=== PATIENT | female | born 1955 | race Caucasian/White ===

== ENCOUNTER 2018-11-22 16:11 | Emergency (ER) | payer OTHER ==
[2018-11-22 16:19] VITALS: TEMP 98.2
[2018-11-22] MEDS ORDERED: HYDROcodone/APAP 5-325MG 1 EACH TAB PO STA (16:38)
--- NOTE | 2018-11-22 16:42 | ED ---
General Adult HPI - General Chief complaint: Extremity Injury, Upper Stated complaint: shoulder pain/nausea Time Seen by Provider: 11/22/18 16:20 Source: patient Mode of arrival: ambulatory Limitations: no limitations - History of Present Illness Initial comments: 63-year-old female presenting with one month of left shoulder pain. Patient states there was no inciting event. She states the pain is in the anterior aspect of the shoulder, is worse with range of motion, has been improved with Motrin and Tylenol with codeine, and does not have any accompanying symptoms. She states over the weekend it had improved but then today she woke and has subjective fever and nausea. She denied any chest pain, shortness of breath, vomiting, diarrhea, urinary symptoms. Denies any diaphoresis. Patient presented to an outside facility who recommended she present here for further evaluation. She denies any joint injections swelling of the shoulder, new ra shes, erythema. Patient had a stress test and EKG last week which were both unremarkable. Patient also admits to a mild frontal headache is not accompanied by any photophobia, focal weakness, or vision change. - Related Data Previous Rx's Medication Instructions Recorded HYDROcodone/APAP 5-325MG [[employer] 1 tab PO Q6HR PRN 3 Days #12 tab 11/22/18 5-325] Allergies Allergy/AdvReac Type Severity Reaction Status Date / Time povidone-iodine Allergy Rash/Hives Verified 11/22/18 16:44 [From Betadine] soap [From Betadine] Allergy Rash/Hives Verified 11/22/18 16:44 Review of Systems ROS Statement: Those systems with pertinent positive or pertinent negative responses have been documented in the HPI. Review of Systems Constitutional: Positive fever, chills Eyes: Denies change in vision, Denies pain Ears, nose, mouth, throat: Denies headaches, Denies sore throat Cardiovascular: Denies chest pain. Denies palpitations Respiratory: Denies shortness of breath, Denies cough Gastrointestinal: Denies abdominal pain. Positive nausea. Negative vomiting, diarrhea. Genitourinary: Denies hematuria, Denies infections Musculoskeletal: Positive pain, Denies swelling Integumentary: Denies rash Neurological: Denies headache, focal weakness, focal numbness Psychiatric: Denies anxiety, Denies depression Hematologic/Lymphatic: Denies easy bleeding or bruising ROS Other: All systems not noted in ROS Statement are negative. 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 Atraumatic Eyes: PERRL. EOMI. No scleral icterus. No injected conjunctiva Neck: Full ROM. No nuchal rigidity. No midline cervical spine tenderness. Chest/Lungs: Clear to auscultation bilaterally. No wheezing, rhonchi, or rales Cardiac: Regular rate, rhythm. No murmurs or rubs. 2+ radial pulses bilaterally Abdomen/GI: Soft, nontender, nondistended. No rebound, guarding, or rigidity. Musculoskeletal: . No swelling or erythema to the left shoulder. Tenderness to palpation to the anterior aspect of the joint. Limited range of motion in all planes secondary to pain. No obvious deformity. Full range of motion of left elbow, wrist, hand. Skin: Warm, dry, intact Neurologic: A/Ox3, no weakness, no sensory deficit, no abnormal gait, no coordination deficit. C5 through T1 sensation intact bilaterally Limitations: no limitations Course Vital Signs 11/22/18 11/22/18 11/22/18 16:13 17:30 18:00 Temperature 98.2 F Pulse Rate 64 55 L Respiratory 16 18 18 Rate Blood Pressure 155/79 126/72 115/77 O2 Sat by Pulse 98 95 98 Oximetry 11/22/18 11/22/18 18:30 19:00 Temperature Pulse Rate 54 L 55 L Respiratory 18 18 Rate Blood Pressure 115/72 121/79 O2 Sat by Pulse 95 96 Oximetry EKG Findings - EKG Comments: EKG Findings:: EKG shows NSR at a rate of [address] segment elevation, depression. No prolonged QT/QTc or OR interval. No dysrythmia noted. Medical Decision Making - Medical Decision Making 63-year-old female here presenting with reported fever, left shoulder pain, nausea. Patient's FRITZ is frontal, she has no neurologic deficit on exam, no neck tenderness or rigidity, and is afebrile here. In the abscence of head injury or neurologic deficit no indication for imaging. Discussed low possibility of meningitis, however this unlikely at this time as the patient is nontoxic and afebrile. The patient agreed on deferring LP. The patient's shoulder pain has been ongoing for one month. She has no rash, fever, erythema, swelling to the joint, or risk factors to have septic arthritis. Unlikely to be the cause of her pain. She had no chest pain, shortness of breath, or other anginal equivalents besides nausea to warrant a cardiac workup. Her EKG showed NSR without ST elevation or depression. She had a negative stress test earlier this week. Patient has no leukocytosis, her ESR is 9 however her CRP is 44. She is afebrile here. Her x-ray showed worsening calcific tendonitis, which is consistent with the patient's presentation as well as her elevated CRP. Her pain improved on the emergency department. The patient has an orthopedic surgeon that she is followed with in the past for knee replacements. Patient's headache completely resolved and she remained neurologically intact on the department. Patient's pain is likely secondary to her tendinitis. She was given a short course of narcotic pain medication, as well as Colace, to take Motrin does not alleviated her symptoms. Instructed not to drive or operate machinery while using the narcotic medication. No further emergent workup indicated. The patient was given return to ED instructions. They were instructed to follow up with their primary care provider. Stable for discharge at this time. - Lab Data Result diagrams: 11/22/18 16:48 11/22/18 16:48 Lab Results 11/22/18 11/22/18 Range/Units 16:48 16:48 WBC 8.5 (3.8-10.6) k/uL RBC 4.83 (3.80-5.40) m/uL Hgb 13.9 (11.4-16.0) gm/dL Hct 42.3 (34.0-46.0) % MCV 87.7 (80.0-100.0) fL MCH 28.7 (25.0-35.0) pg MCHC 32.7 (31.0-37.0) g/dL RDW 14.8 (11.5-15.5) % Plt Count 165 (150-450) k/uL Neutrophils % 75 % Lymphocytes % 15 % Monocytes % 7 % Eosinophils % 0 % Basophils % 0 % Neutrophils # 6.4 (1.3-7.7) k/uL Lymphocytes # 1.3 (1.0-4.8) k/uL Monocytes # 0.6 (0-1.0) k/uL Eosinophils # 0.0 (0-0.7) k/uL Basophils # 0.0 (0-0.2) k/uL ESR 9 (0-20) mm/hr Sodium 140 (137-145) mmol/L Potassium 4.0 (3.5-5.1) mmol/L Chloride 110 H (98-107) mmol/L Carbon Dioxide 22 (22-30) mmol/L Anion Gap 8 mmol/L BUN 9 (7-17) mg/dL Creatinine 0.64 (0.52-1.04) mg/dL Est GFR (CKD-EPI)AfAm >90 (>60 ml/min/1.73 sqM) Est GFR (CKD-EPI)NonAf >90 (>60 ml/min/1.73 sqM) Glucose 112 H (74-99) mg/dL Calcium 10.2 (8.4-10.2) mg/dL C-Reactive Protein 44.9 H (<10.0) mg/L Disposition Clinical Impression: Calcific tendinitis of left shoulder Disposition: HOME SELF-CARE Condition: Good Instructions (If sedation given, give patient instructions): Calcific Tendinitis (ED) Additional Instructions: Follow up with your orthopedic surgeon this week Prescriptions: HYDROcodone/APAP 5-325MG [[employer] 5-325] 1 tab PO Q6HR PRN 3 Days #12 tab PRN Reason: Pain Is patient prescribed a controlled substance at d/c from ED?: Yes When asked, does pt state using other controlled substances?: No If prescribed controlled substance>3 days was MAPS reviewed?: Prescribed <3 Days Referrals: Jaron Benson MD [Primary Care Provider] - 1-2 days
--- NOTE | 2018-11-22 17:23 | XR ---
EXAMINATION TYPE: XR chest 2V DATE OF EXAM: 11/22/2018 COMPARISON: NONE HISTORY: Shoulder pain TECHNIQUE: Frontal and lateral views of the chest are obtained. FINDINGS: Heart and mediastinum are normal. Lungs are clear of consolidation. There is small linear density in the left midlung. There is no pleural effusion. Bony thorax is intact. IMPRESSION: Scarring or subsegmental atelectasis in the left midlung. No heart failure.
--- NOTE | 2018-11-22 17:25 | XR ---
EXAMINATION TYPE: XR shoulder complete LT DATE OF EXAM: 11/22/2018 COMPARISON: NONE HISTORY: Shoulder pain TECHNIQUE: 3 views FINDINGS: I see no fracture nor dislocation. There is some amorphous calcification at the greater tub erosity. Glenohumeral joint is intact. IMPRESSION: There is evidence of some calcific tendinitis. No fracture. Exam limited by clothing Darlene fact.
[2018-11-22 18:42] LABS: Anion Gap 8 mmol/L; Blood Urea Nitrogen 9 mg/dL (7-17); C Reactive Protein 44.9 mg/L (<10.0); Calcium 10.2 mg/dL (8.4-10.2); Carbon Dioxide 22 mmol/L (22-30); Chloride 110 mmol/L (98-107); Glucose 112 mg/dL (74-99); Sodium 140 mmol/L (137-145)
[2018-11-22 18:47] LABS: Basophils % (A) 0 %; Eosinophils % (A) 0 %; HCT 42.3 % (34.0-46.0); HGB 13.9 gm/dL (11.4-16.0); Lymphocytes # (A) 1.3 k/uL (1.0-4.8); Lymphocytes % (A) 15 %; MCH 28.7 pg (25.0-35.0); MCHC 32.7 g/dL (31.0-37.0); MCV 87.7 fL (80.0-100.0); Mean Platelet Volume 8.1; Monocytes # (A) 0.6 k/uL (0-1.0); Monocytes % (A) 7 %; Neutrophils # (A) 6.4 k/uL (1.3-7.7); Neutrophils % (A) 75 %; Platelet Count 165 k/uL (150-450); RBC 4.83 m/uL (3.80-5.40); RDW 14.8 % (11.5-15.5); WBC 8.5 k/uL (3.8-10.6)
[2018-11-22 18:49] VITALS: RESP 18
[2018-11-22 19:05] VITALS: BP 121/79; PULSE 55
[2018-11-22 19:33] LABS: Erythrocyte Sedimentation Rate 9 mm/hr (0-20)
== END 2018-11-22 19:10 | disposition home or self-care (01) ==
LOC: EC 16:11
DX: M75.32 Calcific tendinitis of left shoulder (principal); R50.9 Fever, unspecified; R11.0 Nausea; R51 Headache; Z88.3 Allergy status to other anti-infective agents; Z91.048 Other nonmedicinal substance allergy status; Z86.79 Personal history of other diseases of the circulatory system; Z95.828 Presence of other vascular implants and grafts
CPT/HCPCS: 36415; 71046; 80048; 85025; 85652; 86140; 99283

== ENCOUNTER 2019-06-23 08:58 | Day surgery (SDC) | payer OTHER ==
[2019-06-22 08:49] VITALS: BMI 30.7
[~2019-06-23 08:58] MED LIST: LACTATED RINGERS 1,000 ML IV SCH; LIDOCAINE 1% 20 ML VIAL (10MG/ML) FOR IV START INTRADERMA PRN
[2019-06-23 09:46] VITALS: RESP 16; TEMP 97.5
[2019-06-23 10:02] LABS: Glucose,Whole Blood 84 mg/dL (75-99)
[2019-06-23] MEDS ORDERED: LIDOCAINE 1% INJ 10MG/ML (20 ML MDV) ONE (10:18)
[2019-06-23] MEDS ORDERED: GLYCOPYRROLATE 0.2 MG/ML 2 ML VIAL ONE (10:18)
[2019-06-23] MEDS ORDERED: PROPOFOL 10 MG/ML 20 ML VIAL IV ONE (10:18)
--- NOTE | 2019-06-23 10:39 | P.PCN ---
Date of Procedure: 06/23/19 Procedure(s) Performed: BRIEF HISTORY: Patient is a 62-year-old, pleasant, white female, scheduled for an upper endoscopy as a part of evaluation of heartburn/globus sensation her throat area for the last few weeks duration. She was started on Prilosec 20 mg daily with no significant relief in her symptoms.. PROCEDURE PERFORMED: Esophagogastroduodenoscopy with biopsy. PREOPERATIVE DIAGNOSIS: GERD/globus sensation in her throat area. IV sedation per anesthesia. PROCEDURE: After informed consent was obtained, the patient was brought into the endoscopy unit. IV sedation was administered by Anesthesia under continuous monitoring. Initially the Olympus GIF-140 video endoscope was inserted into the mouth. Esophagus intubated without any difficulty. It was gradually advanced into the stomach and duodenum and carefully examined. The bulb and the second part of the duodenum appeared normal. The scope at this time was withdrawn to the stomach, adequately insufflated with air, and upon careful examination, mucosa of the antrum had scattered erosions and biopsies were done from this area. The, body, cardia and the fundus appeared normal. The scope was then withdrawn into the esophagus. The GE junction was located at 39 cm from the incisors. The esophagus appeared normal. There were no erosions or ulcerations seen, multiple biopsies were done in mid and distal esophagus and the patient tolerated the procedure well. IMPRESSION: 1. Mild antral erosive gastritis. 2. Normal-appearing esophagus with no evidence of esophagitis or esophageal stricture. RECOMMENDATIONS: The findings of this examination were discussed with the patient as well as a family. She was advised to follow with the biopsy results. She will continue with omeprazole 20 mg daily and Pepcid at bedtime and follow antireflux measures. She will be seen in office in 3-4 weeks.
[2019-06-23 11:07] VITALS: BP 153/83; PULSE 52
== END 2019-06-23 11:28 | disposition home or self-care (01) ==
LOC: ORWHC2ENDO 08:58
PROVIDERS: ATTEND Internal Medicine Gastroenterology
DX: K29.50 Unspecified chronic gastritis without bleeding (principal); K21.9 Gastro-esophageal reflux disease without esophagitis; I10 Essential (primary) hypertension; E78.5 Hyperlipidemia, unspecified; Z79.02 Long term (current) use of antithrombotics/antiplatelets; Z79.82 Long term (current) use of aspirin; Z79.899 Other long term (current) drug therapy; Z91.048 Other nonmedicinal substance allergy status; Z98.1 Arthrodesis status; Z90.710 Acquired absence of both cervix and uterus
CPT/HCPCS: 88305; 43239; J2001; J2704

== ENCOUNTER → 2020-01-26 | Outpatient (CLI) | payer OTHER ==
[2020-01-26 14:27] LABS: Basophils % (A) 0 %; Eosinophils # (A) 0.1 k/uL (0-0.7); Eosinophils % (A) 1 %; HCT 40.9 % (34.0-46.0); HGB 13.5 gm/dL (11.4-16.0); Lymphocytes # (A) 1.4 k/uL (1.0-4.8); Lymphocytes % (A) 16 %; MCH 29.5 pg (25.0-35.0); MCV 89.6 fL (80.0-100.0); Mean Platelet Volume 8.4; Monocytes # (A) 0.7 k/uL (0-1.0); Monocytes % (A) 8 %; Neutrophils # (A) 6.3 k/uL (1.3-7.7); Neutrophils % (A) 73 %; Platelet Count 232 k/uL (150-450); RBC 4.56 m/uL (3.80-5.40); RDW 13.1 % (11.5-15.5); WBC 8.7 k/uL (3.8-10.6)
[2020-01-26 14:47] LABS: C Reactive Protein 88.6 mg/L (<10.0); Calcium 10.4 mg/dL (8.4-10.2); Potassium 4.2 mmol/L (3.5-5.1)
--- NOTE | 2020-01-26 18:51 | CT ---
EXAMINATION TYPE: CT abdomen pelvis wo con DATE OF EXAM: 01/26/2020 HISTORY: Lower abdominal pain and nausea. CT DLP: 552.9 mGycm. Automated Exposure Control for Dose Reduction was Utilized. TECHNIQUE: CT scan of the abdomen and pelvis is performed with oral but without IV contrast. COMPARISON: NONE FINDINGS: Within the limitations of a non-contrast study, the following observations are made. LUNG BASES: Nwpy-cz-ijazzcop bibasilar linear scarring and/or atelectasis. LIVER/GB: No significant abnormality is appreciated. PANCREAS: No significant abnormality is seen. SPLEEN: No significant abnormality is seen. ADRENALS: No significant abnormality is seen. KIDNEYS: No renal stones or hydronephrosis is seen bilaterally. BOWEL: The oral contrast reaches the level of the proximal sigmoid colon making evaluation slightly s uboptimal of distal colon. No suspicious small or large bowel dilatation. There is moderate wall thic kening mid sigmoid colon with mild to moderate surrounding fat stranding. No well-formed fluid collec tion or abscess. No pneumoperitoneum. GENITAL ORGANS: Uterus is surgically absent or markedly atrophic. LYMPH NODES: No greater than 1cm abdominal or pelvic lymph nodes are appreciated. OSSEOUS STRUCTURES: Mzop-gc-jrcafzvg axial joint space loss in both hips. Some facet arthropathy lowe r lumbar levels. OTHER: Metallic stent grafts in the iliac veins bilaterally, right side is longer extending past the groin into the common femoral vein. IMPRESSION: CT findings consistent with a mild to moderate uncomplicated acute colitis mid sigmoid co aggie in the central pelvis. Differential includes infectious and inflammatory etiologies. Correlate cl inically. Follow-up colonoscopy after treatment is advised if has not been performed in last 3 years.
== END | disposition home or self-care (01) ==
LOC: RADCTMAIN 13:53
PROVIDERS: ATTEND Nurse Practitioner
DX: R10.30 Lower abdominal pain, unspecified (principal)
CPT/HCPCS: 74176; 80048; 85025; 86140

== ENCOUNTER → 2022-11-28 | Outpatient (CLI) | payer MEDICARE, BC ==
--- NOTE | 2022-11-29 13:33 | MR ---
EXAMINATION TYPE: MR cervical spine wo con DATE OF EXAM: 11/28/2022 COMPARISON: None HISTORY: 67-year-old female M54.2, Z98.1, Neck pain that radiates down right arm. TECHNIQUE: Multiplanar, multisequence images of the cervical spine were acquired without contrast. FINDINGS: No craniocervical junction unremarkable, predental space widening, or prevertebral soft tissue swelli ng. There is mild to moderate multilevel degenerative disc disease with intervertebral disc desiccation a nd small disc osteophyte complexes. These contribute to mild spinal canal stenosis at C3-C4 with abutment and slight flattening of the ve ntral cord and greater degree of mild spinal canal stenosis at C4-C5 with greater degree of abutment and flattening of the ventral cord at this level. Hypertrophic facet and uncovertebral joint arthropathy throughout. Alignment is maintained. Previous ACDF at C6-C7. At C2-C3, there is mild right neuroforaminal stenosis. At C3-C4, there is [id number] right neural foraminal stenosis. At C4-C5, there is moderate left and trvd-ig-[id number] right neuroforaminal stenosis. At C5-C6, mild to moderate left neural foraminal stenosis. At the fused C6-C7 level, no neuroforaminal stenosis. At C7-T1, no neuroforaminal stenosis. No suspicious bone marrow replacement with mild heterogeneity of marrow signal. There is some mild artifacts projecting over the cord. No definite T2-weighted cord signal abnormalit y when correlated with the axial series. IMPRESSION: 1. Previous uncomplicated C6-C7 ACDF. 2. Jdye-ay-otfrihvc degenerative disc disease. Small disc osteophyte complexes at C3-C4 and C4-C5 con tribute to mild spinal canal stenoses at both of these levels. This results in abutment and slight fl attening of the ventral cord, more so at C4-C5, but without mayur cord compression. When correlating with axial series, no convincing myelopathic cord signal change. 3. Variable mild to moderate neural foraminal stenoses secondary to facet and uncovertebral joint art hropathy as outlined above.
== END | disposition home or self-care (01) ==
LOC: RADMRIMAIN 11:17
PROVIDERS: ATTEND Orthopaedic Surgery Orthopaedic Surgery of the Spine
DX: M96.1 Postlaminectomy syndrome, not elsewhere classified (principal); M50.30 Other cervical disc degeneration, unspecified cervical region; M48.02 Spinal stenosis, cervical region; M99.71 Connective tissue and disc stenosis of intervertebral foramina of cervical region; Z98.1 Arthrodesis status
CPT/HCPCS: 72141

== ENCOUNTER → 2024-01-23 | Outpatient (CLI) | payer MEDICARE, BC ==
--- NOTE | 2024-01-23 19:16 | MR ---
EXAMINATION TYPE: MR cervical spine wo con DATE OF EXAM: 01/23/2024 10:22 AM CLINICAL INDICATION:Female, 68 years old with history of M48.02 SPINAL STENOSIS, CERVICAL REGION; PHH , Neck pain into rt arm COMPARISON: 11/28/2022. TECHNIQUE: Multi planar, multi sequence imaging was performed utilizing: T1-weighted, T2-weighted, an d turbo inversion recovery imaging of the cervical spine. IV Contrast: cc (none if empty) FINDINGS: Alignment: The cervical vertebral bodies have preserved heights. Alignment is within normal limits gi buzz patient positioning. Bones: Postsurgical changes at C6-C7 with bony osseous fusion of the vertebral bodies. Bone signal is within normal limits. No abnormal bone marrow edema on inversion recovery sequences. Cord: The spinal cord is unremarkable with regards to their signal intensity and morphology. Discs: Intervertebral disc signal is maintained. C2-C3: No significant disc pathology. The spinal canal is patent. No neural foraminal stenosis. C3-C4: No significant disc pathology. The spinal canal is patent. Bilateral facet and uncovertebral joint arthropathy are present with mild right neural foraminal stenosis. The left neural foramen is p atent. C4-C5: A disc osteophyte complex is present with mild spinal canal stenosis. Bilateral facet and unc overtebral joint arthropathy are present with moderate left neural foraminal stenosis. The right neur al foramen is patent. C5-C6: No significant disc pathology. The spinal canal is patent. Bilateral facet and uncovertebral joint arthropathy are present with mild left neural foraminal stenosis. The right neural foramen is p atent. C6-C7: No significant disc pathology. The spinal canal is patent. No neural foraminal stenosis. C7-T1: No significant disc pathology. The spinal canal is patent. No neural foraminal stenosis. Other: None. IMPRESSION: 1. No evidence for disc herniation or significant spinal canal stenosis. 2. Postsurgical changes with mild disc degeneration with associated osteoarthritic changes. No forami nal stenosis. No significant spinal canal or neural foraminal stenosis.
== END | disposition home or self-care (01) ==
LOC: RADMRIMAIN 08:11
PROVIDERS: ATTEND Neurological Surgery
DX: M48.02 Spinal stenosis, cervical region (principal); M50.30 Other cervical disc degeneration, unspecified cervical region
CPT/HCPCS: 72141

== ENCOUNTER 2024-03-11 09:55 | Day surgery (SDC) | payer MEDICARE, BC ==
[2024-03-11] MEDS ORDERED: LACTATED RINGERS 1,000 ML BAG ONE (10:55)
[2024-03-11] MEDS ORDERED: LIDOCAINE 1% INJ 10MG/ML (20 ML MDV) ONE (12:20)
[2024-03-11] MEDS ORDERED: PROPOFOL 10 MG/ML 20 ML VIAL IV ONE (12:20)
--- NOTE | 2024-04-02 17:02 | P.PCN ---
Date of Procedure: 03/11/24 Procedure(s) Performed: This is an addendum to the procedure was performed on 03/11/2024 Procedure performed EGD with biopsy Preoperative diagnosis: Epigastric pain and nausea Procedure. The scope was advanced into the duodenum. It was gradually withdrawn to the stomach. Evidence of antral gastritis. Biopsies were done from this area. Patient tolerated the procedure well.
== END 2024-03-11 13:08 | disposition home or self-care (01) ==
LOC: ORWHC2ENDO 09:55
PROVIDERS: ATTEND Internal Medicine Gastroenterology
DX: R10.13 Epigastric pain
CPT/HCPCS: 43239; 88305